=== PATIENT | male | born 1990 | race Caucasian/White ===

== ENCOUNTER 2019-12-19 20:07 | Emergency (ER) | payer OTHER ==
[~2019-12-19] VITALS: Ht 180.3 cm; Wt 75.3 kg
[2019-12-19 20:22] VITALS: Ht 180.3 cm; Wt 75.3 kg
[2019-12-19 23:32] VITALS: BP 124/69
== END 2019-12-19 23:32 | disposition home or self-care (01) ==
LOC: ED 20:07
DX: J11.1 Influenza due to unidentified influenza virus with other respiratory manifestations (principal)
CPT/HCPCS: 87804